=== PATIENT | female | born 1975 | race African-American/Black ===

== ENCOUNTER 2016-11-29 10:43 | Emergency (ER) | payer SELFPAY ==
[2016-11-29] MEDS ORDERED: KETOROLAC TROMETHAMINE 60 MG/2 ML SDV IM ONE (11:06)
--- NOTE | 2016-11-29 11:06 | ER Document Report ---
ED Medical Screen (RME) - General Stated Complaint: SIDE PAIN Notes: 41 yo female c/o chronic low back pain with sciatica. increased pain with radiation to right leg into knee x 1 week. no trauma. no fever. no bowel/ bladder change. no paresthesias. no urinary symptoms TRAVEL OUTSIDE OF THE [place] IN LAST 30 DAYS: No - Related Data Allergies/Adverse Reactions: No Known Allergies Allergy (Verified 04/13/16 08:32) Past Medical History Musculoskeltal Medical History: Reports Hx Musculoskeletal Deformity - Back pain in the past but not this bad - Immunizations Immunizations up to date: Yes Hx Diphtheria, Pertussis, Tetanus Vaccination: Yes
[2016-11-29] MEDS ORDERED: OXYCODONE-ACETAMINOPHEN 5-325 MG TABLET PO ONE (11:39)
--- NOTE | 2016-11-29 11:43 | ER Document Report ---
HPI - HPI Patient complains to provider of: low back pain Onset: Last week Onset/Duration: Persistent Quality of pain: Achy Pain Level: 4 Context: Patient complains of low back pain that radiates to left lower extremity to the level of her knee. Patient states she's had chronic back pain with sciatica in the past and this feels typical of flareups that she has had. Patient denies any fever, urinary retention or incontinence. He should states pain is worse when she lies supine. Patient states she typically has flareups about every other month. Associated Symptoms: Other - Low back pain. denies: Fever, Weakness Exacerbated by: Supine Relieved by: Denies Similar symptoms previously: Yes Recently seen / treated by doctor: No - ROS ROS below otherwise negative: Yes Systems Reviewed and Negative: Yes All other systems reviewed and negative - CONSTITUTIONAL Constitutional: DENIES: Fever, Chills - NEURO Neurology: DENIES: Headache, Weakness - GASTROINTESTINAL Gastrointestinal: DENIES: Nausea, Patient vomiting - URINARY Urinary: DENIES: Dysuria Notes: No retention or incontinence - REPRODUCTIVE Reproductive: DENIES: : - MUSCULOSKELETAL Musculoskeletal: REPORTS: Extremity pain, Back Pain - DERM Skin Color: Normal Skin Problems: None Past Medical History - General Information source: Patient - Social History Smoking Status: Never Smoker Chew tobacco use (# tins/day): No Frequency of alcohol use: Social Drug Abuse: None Occupation: none Lives with: Family Family History: Arthritis, CAD, DM, Hyperlipidemia, Hypertension, Malignancy, Thyroid Disfunction, Other Patient has suicidal ideation: No Patient has homicidal ideation: No Musculoskeltal Medical History: Reports Hx Musculoskeletal Deformity - Back pain in the past but not this bad Surgical Hx: Negative - Immunizations Immunizations up to date: Yes Hx Diphtheria, Pertussis, Tetanus Vaccination: Yes Vertical Provider Document - CONSTITUTIONAL Agree With Documented VS: Yes Exam Limitations: No Limitations General Appearance: WD/WN, No Apparent Distress Notes: PHYSICAL EXAMINATION: GENERAL: Well-appearing, well-nourished and in no acute distress. HEAD: Atraumatic, normocephalic. EYES: sclera clear, anicteric, conjunctiva are normal. ENT: nares patent, Moist mucous membranes. NECK: Normal range of motion, supple no lymphadenopathy LUNGS: respirations unlabored HEART: Regular rate and rhythm without murmurs EXTREMITIES: Normal range of motion, no pitting or edema. No cyanosis. Gait normal, pt ambulates without difficulty BACK: Left lower lumbar paraspinal tenderness, no deformities or step-offs. No CVA tenderness. NEUROLOGICAL: Cranial nerves grossly intact. Normal speech, normal gait. No saddle anesthesia. No foot drop PSYCH: Normal mood, normal affect. SKIN: Warm, Dry, normal turgor, no rashes or lesions noted. - INFECTION CONTROL TRAVEL OUTSIDE OF THE [place] IN LAST 30 DAYS: No Discharge - Discharge Clinical Impression: Low back pain Qualifiers: Chronicity: acute Back pain laterality: left Sciatica presence: with sciatica Sciatica laterality: sciatica of left side Qualified Code(s): M54.42 - Lumbago with sciatica, left side Condition: Stable Disposition: HOME, SELF-CARE Additional Instructions: Return immediately for any new or worsening symptoms Followup with your primary care provider, call tomorrow to make a followup appointment LOW BACK PAIN: Three out of every four people will have an episode of disabling back pain during their lifetime. Most commonly the pain is due to straining of the muscles and ligaments in the low back. Usual treatment includes: (1) Rest on a firm surface. Avoid lying on your stomach. (2) Ice pack the painful area. After a few days, gentle heat may be used intermittently to relax the area, or ice packs can be continued. (3) Medication may be needed -- muscle relaxers and antiinflammatory medicines are commonly used. (4) As the back improves, exercises are prescribed to strengthen the back and abdominal muscles. Your doctor will advise you on the proper care for your back at each stage in your recovery. You may be better in a few days -- or healing may take several weeks. If new symptoms of a "herniated disc" (radiation of pain, numbness, or tingling down the back of the leg or weakness in the leg) occur, you should be re-examined. Further testing may be necessary. ORAL NARCOTIC MEDICATION: You have been given a prescription for pain control. This medication is a narcotic. It's best taken with food, as nausea can result if taken on an empty stomach. Don't operate machinery or drive within six hours of taking this medication. Do not combine this medicine with alcohol, or with any medication which can cause sedation (such as cold tablets or sleeping pills) unless you get permission from the physician. Narcotics tend to cause constipation. If possible, drink plenty of fluids and eat a diet high in fiber and fruits. Please be aware that prescription narcotics also have the potential for abuse. People become addicted to these medications because of the general sense of wellbeing that they induce. This feeling along with a significant reduction in tension, anxiety, and aggression provides a stimulating seductive quality to these drugs. Once your pain is under control, we encourage you to discard your unused narcotics. ICE PACKS: Apply ice packs frequently against the painful area. Many different schedules are recommended, such as "20 minutes on, 20 minutes off" or "one hour ice, two hours rest." If you need to work, you may need to go longer between ice treatments. You should plan to have the area ice packed AT LEAST one fourth of the time. The ice should be applied over the wrap, tape, or splint, or over a layer of cloth -- not directly against the skin. Some ice bags have a built-in cloth and can be put directly on the skin. WARM PACKS: After approximately two days, apply gentle heat (such as a heating pad or hot water bottle) for about 20 to 30 minutes about every two hours -- at least four times daily. Warmth and elevation will help you make a more rapid recovery , and will ease the pain considerably. Do not use HOT heat, and never apply heat for longer than 30 minutes. The continuous heat can invisibly damage skin and muscles -- even when no burn is seen on the surface. Damaged muscles can make you MORE sore. FOLLOW-UP CARE: If you have been referred to a physician for follow-up care, call the physician s office for an appointment as you were instructed or within the next two days. If you experience worsening or a significant change in your symptoms, notify the physician immediately or return to the Emergency Department at any time for re-evaluation. Prescriptions: Naproxen [Naprosyn 250 Nmg Tablet] 1 tab PO BID #14 tablet Oxycodone HCl/Acetaminophen [Percocet 5-325 mg Tablet] 1 - 2 tab PO ASDIR PRN # 15 tablet PRN Reason: Referrals: DANNA MAGALLANES MD [Primary Care Provider] - Follow up in 3-5 days
[2016-11-29 11:55] VITALS: BP 116/72
== END 2016-11-29 12:00 | disposition home or self-care (01) ==
LOC: ER 10:43
DX: M54.42 Lumbago with sciatica, left side (principal)
CPT/HCPCS: 99283; 96372; J1885

== ENCOUNTER 2016-12-18 12:21 | Emergency (ER) | payer SELFPAY ==
--- NOTE | 2016-12-18 13:01 | ER Document Report ---
ED Medical Screen (RME) - General Chief Complaint: Hand Pain Stated Complaint: HAND PAIN Notes: Patient presents with ganglion cyst on the right wrist for 2 weeks. No pain, full range of motion is decreased sensation I have greeted and performed a rapid initial assessment of this patient. A comprehensive ED assessment and evaluation of the patient, analysis of test results and completion of the medical decision making process will be conducted by additional ED providers. TRAVEL OUTSIDE OF THE [place] IN LAST 30 DAYS: No - Related Data Allergies/Adverse Reactions: No Known Allergies Allergy (Verified 12/18/16 13:00) Past Medical History Musculoskeltal Medical History: Reports Hx Musculoskeletal Deformity - Back pain in the past but not this bad - Immunizations Immunizations up to date: Yes Hx Diphtheria, Pertussis, Tetanus Vaccination: Yes
[2016-12-18 13:04] VITALS: BP 131/79
[2016-12-18] MEDS ORDERED: LIDOCAINE 1%/EPINEPHRINE INJ 20 ML VIAL INJ ONE (14:50)
[2016-12-18] MEDS ORDERED: KETOROLAC TROMETHAMINE 60 MG/2 ML SDV IM ONE (14:52)
--- NOTE | 2016-12-18 14:54 | ER Document Report ---
ED General - General Chief Complaint: Hand Injury Stated Complaint: HAND PAIN Time seen by provider: 14:52 Mode of Arrival: Ambulatory Information source: Patient Notes: This is a 41-year-old female with a history of back pain who presents to the emergency room with left lower back pain radiating down the left leg. She does have a history of sciatica and states that it's been bothering in the past week. Patient denies any fever, chills. Patient denies any urinary incontinence or urine retention or numbness down the leg. Patient denies any motor weakness. Patient also complains of a cyst on the dorsal aspect of her right hand for the past month. TRAVEL OUTSIDE OF THE [place] IN LAST 30 DAYS: No - HPI Onset: Just prior to arrival Onset/Duration: Gradual Quality of pain: Dull Severity: Mild Pain Level: 1 Associated symptoms: denies: Chills, Fever, Weakness Exacerbated by: Movement Relieved by: Remaining still Similar symptoms previously: Yes Recently seen / treated by doctor: No - Related Data Allergies/Adverse Reactions: No Known Allergies Allergy (Verified 12/18/16 13:00) Past Medical History - General Information source: Patient - Social History Smoking Status: Never Smoker Cigarette use (# per day): No Chew tobacco use (# tins/day): No Frequency of alcohol use: None Drug Abuse: None Lives with: Family Family History: Arthritis, CAD, DM, Hyperlipidemia, Hypertension, Malignancy, Thyroid Disfunction, Other Patient has suicidal ideation: No Patient has homicidal ideation: No - Medical History Medical History: Negative Renal/ Medical History: Denies: Hx Peritoneal Dialysis Musculoskeltal Medical History: Reports Hx Musculoskeletal Deformity - Back pain in the past but not this bad Surgical Hx: Negative - Immunizations Immunizations up to date: Yes Hx Diphtheria, Pertussis, Tetanus Vaccination: Yes Review of Systems - Review of Systems Constitutional: denies: Chills, Fever EENT: No symptoms reported Cardiovascular: No symptoms reported Respiratory: No symptoms reported Gastrointestinal: No symptoms reported Genitourinary: No symptoms reported Female Genitourinary: No symptoms reported Musculoskeletal: See HPI Skin: See HPI Hematologic/Lymphatic: No symptoms reported Neurological/Psychological: No symptoms reported Physical Exam - Vital signs Vitals: Temp Pulse Resp BP Pulse Ox 98.2 F 90 16 131/79 H 100 12/18/16 13:01 12/18/16 13:12/18/16 13:12/18/16 13:12/18/16 13:01 Notes: Physical exam: GENERAL: 41-year-old female, alert and oriented 3, no acute distress HEAD: Atraumatic, normocephalic. EYES: Pupils equal round and reactive to light, extraocular movements intact, sclera anicteric, conjunctiva are normal. ENT: TMs normal, nares patent, oropharynx clear without exudates. Moist mucous membranes. NECK: Normal range of motion, supple without lymphadenopathy or JVD. LUNGS: Breath sounds clear to auscultation bilaterally and equal. No wheezes rales or rhonchi. HEART: Regular rate and rhythm without murmurs, rubs or gallops. ABDOMEN: Soft, nontender, normoactive bowel sounds. No guarding, no rebound. No masses appreciated. Back: No spinal tenderness. There is left paraspinal tenderness to palpation without crepitus or skin changes. EXTREMITIES: Patient does have a 2 cm x 2 cm ganglionic cyst on the dorsal aspect of the right hand. There is no overlying erythema. Otherwise, the lower extremities show Normal range of motion, no pitting or edema. No clubbing or cyanosis. NEUROLOGICAL: Cranial nerves II through XII grossly intact. Normal speech, normal gait. PSYCH: Normal mood, normal affect. SKIN: Warm, Dry, normal turgor, no rashes or lesions noted. Course - Vital Signs Vital signs: Temp Pulse Resp BP Pulse Ox 98.2 F 90 16 131/79 H 100 12/18/16 13:12/18/16 13:12/18/16 13:12/18/16 13:12/18/16 13:01 Procedures - Incision and Drainage Right Hand Time completed: 15:17 Type: Single Anesthetic type: 1% Lidocaine w/epi mL's of anesthetic: 3 Blade size: Other - 18-gauge needle Incision Method: Incision made with needle Amount/type of drainage: 3 mL of thick gelatinous cystic material removed. Notes: 12/18/16 15:18 The site was first prepped with ChloraPrep. A small amount of lidocaine with epi was injected over the site of entry using a insulin syringe (very small bore needle). An 18-gauge needle was then used to penetrate the ganglionic cyst and I was able to aspirate several cc of gelatinous material which is noninfectious in appearance. I did fenestrate the cyst before complete evacuation of the cavity. The site was cleaned with an alcohol pad and a Band- Aid was placed. Discharge - Discharge Clinical Impression: ganglionic cyst status post drainage, sciatica, Pre-hypertension Condition: Stable Disposition: HOME, SELF-CARE Instructions: Sciatica ([facility]), Ganglion Cyst ([facility]) Additional Instructions: Recommendations: As far as the back pain: See the sciatic instruction sheet. Take the Percocet for pain. Take the muscle relaxers as needed. Avoid heavy lifting. As far as the ganglionic cyst: There is a chance that he can come back. He can follow-up with the hand surgeon if it does come back: I left the number on the chart. Return to the emergency room if he develop any redness or swelling or pussy drainage or increased pain at the site of drainage of the cyst. The site may be tender for a few days: This is normal. Regarding your blood pressure: Your blood pressure was in the normal range, but the government would consider it in the "high normal range". The current recommendations is that you follow-up with a primary care doctor for repeat blood pressure check. The mild elevation in blood pressure at simply be from the pain that you experience today, but is recommended to get a recheck. Prescriptions: Methocarbamol [Robaxin 500 mg Tablet] 500 mg PO BID #20 tablet Oxycodone HCl/Acetaminophen [Percocet 5-325 mg Tablet] 1 - 2 tab PO ASDIR PRN # 25 tablet PRN Reason: Referrals: MARY ROJAS DO [ACTIVE STAFF] - Follow up as needed (This is the number for the hand surgeon.) ARGENIS BRASHER MD [ACTIVE STAFF] - Follow up in 3-5 days (This is the number of a primary care doctor to have your blood pressure rechecked.)
== END 2016-12-18 15:40 | disposition home or self-care (01) ==
LOC: ER 12:21
PROC: 0MB70ZZ Excision of Right Hand Bursa and Ligament, Open Approach (ICD-10-PCS; principal; 2016-12-18)
DX: M67.441 Ganglion, right hand (principal); M54.30 Sciatica, unspecified side; R03.0 Elevated blood-pressure reading, without diagnosis of hypertension
CPT/HCPCS: 26160; 99283; 96372; J1885; J3490

== ENCOUNTER 2017-01-04 10:40 | Emergency (ER) | payer SELFPAY ==
[2017-01-04 10:54] VITALS: BP 110/65
--- NOTE | 2017-01-04 10:57 | ER Document Report ---
ED Medical Screen (RME) - General Stated Complaint: BACK PAIN Notes: patient p/w sciatica b/l and comes here for a toradol IM. denies any injury, heavy lifting. denies UI, SI, saddle anesthesia, able to bear weight and ambulate I have greeted and performed a rapid initial assessment of this patient. A comprehensive ED assessment and evaluation of the patient, analysis of test results and completion of the medical decision making process will be conducted by additional ED providers. TRAVEL OUTSIDE OF THE [place] IN LAST 30 DAYS: No - Related Data Allergies/Adverse Reactions: No Known Allergies Allergy (Verified 01/04/17 10:55) Past Medical History Renal/ Medical History: Denies: Hx Peritoneal Dialysis Musculoskeltal Medical History: Reports Hx Musculoskeletal Deformity - Back pain in the past but not this bad - Immunizations Immunizations up to date: Yes Hx Diphtheria, Pertussis, Tetanus Vaccination: Yes Physical Exam - Vital signs Vitals: Temp Pulse Resp BP Pulse Ox 97.7 F 66 16 110/65 100 01/04/17 10:54 01/04/17 10:54 01/04/17 10:54 01/04/17 10:54 01/04/17 10:54 Course - Vital Signs Vital signs: Temp Pulse Resp BP Pulse Ox 97.7 F 66 16 110/65 100 01/04/17 10:54 01/04/17 10:54 01/04/17 10:54 01/04/17 10:54 01/04/17 10:54
--- NOTE | 2017-01-04 14:32 | ER Document Report ---
[id number] TRAVEL OUTSIDE OF THE [place] IN LAST 30 DAYS: No - HPI Patient complains to provider of: Back Pain Onset: Last week Onset/Duration: Sudden, Constant Associated symptoms: None - General Chief Complaint: Back Pain Stated Complaint: BACK PAIN Notes: Patient is a 41 y/o female presenting to the emergency department chief complaint back pain that shoots down to her knees for the past week. Patient says the right side hurts worse than the left side. Patient states she has past history of sciatica as well as bulging disk. Patient states it is difficult to walk and to turn over in bed. Patient can usually deal with the pain, but when it gets really bad, patient states she comes into the emergency department to get a Toradol shot. Patient denies ever getting steroids for her sciatica. (KATHY MCNEAL) - Related Data Allergies/Adverse Reactions: No Known Allergies Allergy (Verified 01/07/17 16:45) Past Medical History - General Information source: Patient - Social History Smoking Status: Never Smoker Chew tobacco use (# tins/day): No Frequency of alcohol use: None Drug Abuse: None Family History: Reviewed & Not Pertinent, Arthritis, CAD, DM, Hyperlipidemia, Hypertension, Malignancy, Thyroid Disfunction, Other Patient has suicidal ideation: No Patient has homicidal ideation: No Renal/ Medical History: Denies: Hx Peritoneal Dialysis Musculoskeltal Medical History: Reports Hx Musculoskeletal Deformity - Immunizations Immunizations up to date: Yes Hx Diphtheria, Pertussis, Tetanus Vaccination: Yes Review of Systems - Review of Systems Constitutional: No symptoms reported EENT: No symptoms reported Cardiovascular: No symptoms reported Respiratory: No symptoms reported Gastrointestinal: No symptoms reported Genitourinary: No symptoms reported Female Genitourinary: No symptoms reported Musculoskeletal: See HPI, Back pain Skin: No symptoms reported Hematologic/Lymphatic: No symptoms reported Neurological/Psychological: No symptoms reported -: Yes All other systems reviewed and negative Physical Exam - Vital signs Vitals: Temp Pulse Resp BP Pulse Ox 97.7 F 66 16 110/65 100 01/04/17 10:54 01/04/17 10:54 01/04/17 10:54 01/04/17 10:54 01/04/17 10:54 (KATHY MCNEAL) (MEGHAN ARIAS) - Notes Notes: GENERAL: Alert, interacts well. No acute distress. HEAD: Normocephalic, atraumatic. EYES: Pupils equal, round, and reactive to light. Extraocular movements intact. ENT: Oral mucosa moist. NECK: Full range of motion. Supple. Trachea midline. ABDOMEN: Soft, non-tender. BACK: Pain bilateral sciatic region. No midline tenderness. EXTREMITIES: Moves all 4 extremities spontaneously. No edema. Normal dorsal flexion bilaterally. NEUROLOGICAL: Alert and oriented x3. Normal speech.Patellar DTRs 2+ bilaterally. PSYCH: Normal affect, normal mood. SKIN: Warm, dry, normal turgor. No rashes or lesions noted. (KATHY MCNEAL) Course - Re-evaluation Re-evalutation: 01/04/17 14:37 I personally performed the services described in the documentation, reviewed and edited the documentation which was dictated to my scribe in my presence, and it accurately records my words and actions. Patient with history of chronic sciatica presents with a 2 day episode which feels like her sciatica. She says bilaterally starts that her sciatic region goes down posteriorly to her knee but not past it. She has no trouble walking no bowel or bladder urinary complaints or malfunction no pain in the back itself numbness tingling weakness or loss of bowel or bladder function. On examination she is neurologically intact no acute threatening neurological events gave her shot of Toradol prednisone follow primary care physician 3-4 days and discussed reasons for ED return sooner (MEGHAN ARIAS) - Vital Signs Vital signs: Temp Pulse Resp BP Pulse Ox 97.7 F 66 16 110/65 100 01/04/17 10:54 01/04/17 10:54 01/04/17 10:54 01/04/17 10:54 01/04/17 10:54 (KATHY MCNEAL) (MEGHAN ARIAS) Discharge - Discharge Clinical Impression: Sciatica Qualifiers: Laterality: bilateral Qualified Code(s): M54.31 - Sciatica, right side Condition: Stable Disposition: HOME, SELF-CARE Additional Instructions: Sciatica Your symptoms suggest "sciatica." The pain of sciatica typically radiates down the leg. Numbness in the foot or calf may also occur. Sciatica is caused by irritation of the sciatic nerve or its branches. The irritation can be due to a herniated disk in the spine, swelling and inflammation in the muscles surrounding the sciatic nerve, or direct injury of the nerve itself. Most cases of sciatica will resolve with medical treatment. Bed rest is usually recommended initially. Surgery is only necessary when the condition will not improve with rest and antiinflammatory medication. Muscle relaxers are often given if muscle soreness is present. A CAT scan of the back may be performed if a herniated disk is suspected. Re-examination is necessary if you develop increasing numbness, localized weakness in the foot or ankle, or if the pain does not respond to rest. Prescriptions: Prednisone [Deltasone 20 mg Tablet] 3 tab PO DAILY 5 Days Referrals: [facility] [Provider Group] - Follow up in 3-5 days (Call for an appointment to be seen in 3-4 days return for increasing worsening or new symptoms) Scribe Documentation - Scribe Written by Anne Marie:: Kathy Mcneal 01/04/2017 1431 acting as scribe for :: Pietro
[2017-01-04] MEDS ORDERED: KETOROLAC TROMETHAMINE 60 MG/2 ML SDV IM ONE (14:39)
== END 2017-01-04 15:20 | disposition home or self-care (01) ==
LOC: ER 10:40
DX: M54.31 Sciatica, right side (principal); M54.32 Sciatica, left side; M54.9 Dorsalgia, unspecified; Z82.61 Family history of arthritis
CPT/HCPCS: 99283; 96372; J1885

== ENCOUNTER 2017-01-07 16:21 | Emergency (ER) | payer SELFPAY ==
--- NOTE | 2017-01-07 16:46 | ER Document Report ---
ED Medical Screen (RME) - General Stated Complaint: RIGHT LEG PAIN Mode of Arrival: Ambulatory Information source: Patient Notes: Patient presents complaining of right lower extremity pain. Patient states she knows a bruise to her aspect of her thigh. Patient denies any recent injury. She reports leg pain for the past 3 days. hx: Low back pain, sciatica I have greeted and performed a rapid initial assessment of this patient. A comprehensive ED assessment and evaluation of the patient, analysis of test results and completion of the medical decision making process will be conducted by additional ED providers. TRAVEL OUTSIDE OF THE [place] IN LAST 30 DAYS: No - Related Data Allergies/Adverse Reactions: No Known Allergies Allergy (Verified 01/04/17 10:55) Past Medical History Renal/ Medical History: Denies: Hx Peritoneal Dialysis Musculoskeltal Medical History: Reports Hx Musculoskeletal Deformity - Immunizations Immunizations up to date: Yes Hx Diphtheria, Pertussis, Tetanus Vaccination: Yes Physical Exam - Vital signs Vitals: Temp Pulse Resp BP Pulse Ox 98.2 F 67 16 127/62 H 98 01/07/17 16:26 01/07/17 16:26 01/07/17 16:26 01/07/17 16:26 01/07/17 16:26 - Extremities General lower extremity: Tender - Right lower extremity Course - Vital Signs Vital signs: Temp Pulse Resp BP Pulse Ox 98.2 F 67 16 127/62 H 98 01/07/17 16:26 01/07/17 16:26 01/07/17 16:26 01/07/17 16:26 01/07/17 16:26
[2017-01-07] MEDS ORDERED: KETOROLAC TROMETHAMINE 60 MG/2 ML SDV IM ONE (22:30)
--- NOTE | 2017-01-07 22:41 | ER Document Report ---
HPI - HPI Pain Level: 5 Context: Patient is a 41-year-old female who was recently seen in our emergency department last for right sciatica. Patient states that she was seen on in the next day on Sunday she admits to right thigh pain and bruising. Patient denies any recent trauma to the leg but it is worse with movement and improves with rest. She has not been taking anything over-the- counter for her pain. Also complaining of right sciatica. Patient states that she has a history of this denies any urinary/stool incontinence, saddle anesthesia. Patient is able to ambulate without any difficulty while I'm in the room - CARDIOVASCULAR Cardiovascular: DENIES: Chest pain - REPRODUCTIVE Reproductive: DENIES: : - DERM Skin Color: Normal Past Medical History - General Information source: Patient - Social History Smoking Status: Unknown if Ever Smoked Chew tobacco use (# tins/day): No Frequency of alcohol use: Social Drug Abuse: None Family History: Reviewed & Not Pertinent, Arthritis, CAD, DM, Hyperlipidemia, Hypertension, Malignancy, Thyroid Disfunction, Other Patient has suicidal ideation: No Patient has homicidal ideation: No Renal/ Medical History: Denies: Hx Peritoneal Dialysis Musculoskeltal Medical History: Reports Hx Musculoskeletal Deformity - Immunizations Immunizations up to date: Yes Hx Diphtheria, Pertussis, Tetanus Vaccination: Yes Vertical Provider Document - CONSTITUTIONAL Agree With Documented VS: Yes Exam Limitations: No Limitations General Appearance: WD/WN, No Apparent Distress - INFECTION CONTROL TRAVEL OUTSIDE OF THE [place] IN LAST 30 DAYS: No - RESPIRATORY O2 Sat by Pulse Oximetry: 98 - CARDIOVASCULAR Pulses: Normal: Femoral, Dorsalis pedis - BACK Back: Normal Inspection. negative: CVA Tenderness-Right, CVA Tenderness-Left Notes: No paraspinous muscle tenderness. - MUSCULOSKELETAL/EXTREMETIES Musculoskeletal/Extremeties: MAEW, FROM, Non-Tender, No Edema, Eccymosis - Mild ecchymosis may be 1 x 2 cm over the right lateral thigh. No evidence of deformity - NEURO Level of Consciousness: Awake, Alert, Appropriate Motor/Sensory: No Motor Deficit, No Sensory Deficit - DERM Integumentary: Warm, Dry, No Rash Course - Re-evaluation Re-evalutation: 01/07/17 23:04 Patient is a 41-year-old female presents emergency Department with a contusion of the right thigh. She states she's never sure what she had a cough of wanted to His evaluated. No evidence of skin damage or inflammation, no evidence of femur deformity. Patient is disabled and bear weight without any difficulty. The charge patient home and can follow-up with her PCP - Vital Signs Vital signs: Temp Pulse Resp BP Pulse Ox 98.2 F 67 16 127/62 H 98 01/07/17 16:26 01/07/17 16:26 01/07/17 16:26 01/07/17 16:26 01/07/17 16:26 Discharge - Discharge Clinical Impression: Thigh contusion Qualifiers: Encounter type: initial encounter Laterality: right Qualified Code(s): S70.11XA - Contusion of right thigh, initial encounter Condition: Good Disposition: HOME, SELF-CARE Instructions: Warm Packs ([facility]), Contusion ([facility]) Prescriptions: Meloxicam [Mobic 7.5 Mg Tablet] 7.5 mg PO BID #14 tablet Referrals: DANNA MAGALLANES MD [Primary Care Provider] - Follow up as needed
[2017-01-07 22:58] VITALS: BP 116/56
== END 2017-01-07 23:03 | disposition home or self-care (01) ==
LOC: ER 16:21
DX: S70.11XA Contusion of right thigh, initial encounter (principal); X58.XXXA Exposure to other specified factors, initial encounter; M54.31 Sciatica, right side
CPT/HCPCS: 99283; 96372; J1885

== ENCOUNTER 2017-01-10 07:29 | Emergency (ER) | payer SELFPAY ==
[2017-01-10 07:40] VITALS: BP 140/90
--- NOTE | 2017-01-10 08:26 | ER Document Report ---
HPI - HPI Patient complains to provider of: sciatica, leg pain Pain Level: 5 Context: He is a 41 female presents emergency Department complaining of right sciatica- like pain onset 2 and half weeks ago. Denies any trauma or accident. Patient has recently complained was recently diagnosed with sciatica and dailey splints of the right lower extremity. She states the medication she was previously sent home on is not doing anything and that ice/heat is not really helping with the pain she is up and stretches and she has not followed followed up with her primary care provider. She states that she's completing the prednisone that was given to her about one week ago with resolution of left-sided sciatica but now complaining of right lateral thigh pain and right anterior lower leg pain. Patient is able to ambulate without any difficulty. Denies any urinary/ incontinence, saddle anesthesia. PCP is Dr. pauline Magallanes - REPRODUCTIVE Reproductive: DENIES: : - DERM Skin Color: Normal Past Medical History - Social History Smoking Status: Never Smoker Chew tobacco use (# tins/day): No Frequency of alcohol use: Social Family History: Reviewed & Not Pertinent, Arthritis, CAD, DM, Hyperlipidemia, Hypertension, Malignancy, Thyroid Disfunction, Other Renal/ Medical History: Denies: Hx Peritoneal Dialysis Musculoskeltal Medical History: Reports Hx Musculoskeletal Deformity - Immunizations Immunizations up to date: Yes Hx Diphtheria, Pertussis, Tetanus Vaccination: Yes Vertical Provider Document - CONSTITUTIONAL Agree With Documented VS: Yes Exam Limitations: No Limitations, Physical Impairment General Appearance: WD/WN, No Apparent Distress - INFECTION CONTROL TRAVEL OUTSIDE OF THE [place] IN LAST 30 DAYS: No - NECK Neck: Normal Inspection, Other - Full range of motion and no pain to palpation - RESPIRATORY Respiratory: Breath Sounds Normal, No Respiratory Distress, Chest Non-Tender. negative: Rales, Rhonchi, Wheezing O2 Sat by Pulse Oximetry: 99 - CARDIOVASCULAR Cardiovascular: Regular Rate, Regular Rhythm, No Murmur Pulses: Normal: Radial, Dorsalis pedis - MUSCULOSKELETAL/EXTREMETIES Musculoskeletal/Extremeties: MAEW, FROM, Tender, No Edema. negative: Eccymosis - NEURO Level of Consciousness: Awake, Alert, Appropriate Motor/Sensory: No Motor Deficit, No Sensory Deficit - DERM Integumentary: Warm, Dry, No Rash Course - Re-evaluation Re-evalutation: 01/10/17 08:38 Patient is a 41-year-old female presents emergency department complaining of a chronic complaint of right sciatica and dailey splints. Discussed with patient the importance of doing ice, heat, stretching, anti-inflammatory medications. Discussed with her she needs a follow-up with her PCP regarding this issue in the future. - Vital Signs Vital signs: Temp Pulse Resp BP Pulse Ox 98.1 F 60 16 140/90 H 99 01/10/17 07:33 01/10/17 07:33 01/10/17 07:33 01/10/17 07:33 01/10/17 07:33 Discharge - Discharge Clinical Impression: IT band syndrome Qualifiers: Laterality: right Qualified Code(s): M76.31 - Iliotibial band syndrome, right leg Dailey splints Qualifiers: Encounter type: subsequent encounter Laterality: right Qualified Code(s): S86.891D - Other injury of other muscle(s) and tendon(s) at lower leg level, right leg, subsequent encounter Condition: Good Disposition: HOME, SELF-CARE Instructions: Stretching Exercises for the Back ([facility]), Sciatica ([facility]) Additional Instructions: Dailey Splints What are dailey splints? Dailey splints refers to pain and tenderness along or just behind the large bone in the lower leg (the tibia). What causes dailey splints? Dailey splints most often happen after hard exercise, sports, or repetitive activity. This repetitive action can lead to inflammation of the muscles, tendons, and thin layer of tissue covering the dailey bones, causing pain. What are the symptoms of dailey splints? These are the most common symptoms of dailey splints: * Pain felt on the front and outside of the dailey. It's first felt when the heel touches the ground during running. In time, pain becomes constant and the dailey is painful to the touch. * Pain that starts on the inside of the lower leg above the ankle. Pain gets worse when standing on the toes or rolling the ankle inward. As the dailey splint progresses, pain will increase. The best course of treatment for dailey splints is to stop any activity that's causing the pain, until the injury is healed. Other treatment may include: * Stretching exercises * Strengthening exercises * Cold packs * Medicine, such as ibuprofen * Running shoes with a stiff heel and special arch support Can dailey splints be prevented? You may be able to prevent dailey splints by wearing good fitting athletic shoes. Also, gradually increase the intensity, duration, and frequency of a new exercise routine. It may also help to switch between high impact activities and low impact activities such as swimming or cycling. Sales points about dailey splints * Dailey splints refers to the pain and tenderness along or just behind the large bone in the lower leg. * They develop after hard exercise, sports, or repetitive activity. * Dailey splints cause pain on the front or outside of the shins or on the inside of the lower leg above the ankle. * Treatment includes stopping the activity that causes the pain. Stretching and strengthening exercises may also help. You can also apply cold packs, take medicines, such as ibuprofen, and wear good fitting athletic shoes. Iliotibial Band Syndrome What is iliotibial band syndrome? Iliotibial band syndrome (often called IT band syndrome) is a medical condition that causes pain on the outside of the knee. It most commonly happens in athletes, especially distance runners, or those new to exercise. The bones of your knee joint are your thighbone (femur), your shinbone (tibia), and your kneecap (patella). Your iliotibial band is a strong, thick band of tissue that runs down the outside of your thigh. It extends all the way from your hip bones to the top of your shinbone. When you bend and extend your leg, this band moves over the outer lower edge of your thighbone. With repeated bending and extending of the knee, this movement of the iliotibial band may irritate surrounding tissues, causing pain. Although anyone can develop it, iliotibial band syndrome is relatively common in distance runners. What causes iliotibial band syndrome? Researchers are still debating the exact cause of iliotibial band syndrome. The pain may result directly from friction as the iliotibial band moves over the lower outer edge of the thighbone. This may cause inflammation in the bone, tendons, and small, fluid-filled sacs in the area. The iliotibial band may also abnormally compress the tissue beneath it, causing pain. Whatever the specific cause, it is clear that repetitive bending and extending of the knee is in some way responsible for iliotibial band syndrome. Exercise Instructions: -Side Leg Raise: Lie on your right side and lift your left leg to 45 degrees in a controlled manner, then lower it back down to the starting position. Make sure your pelvis remains in a neutral position. A more advanced version includes a loop of rubber tubing around your ankles for added resistance. Perform 20-30 reps. -Clamshell: Lie on your right side with your knees and ankles together, with knees bent at about 90 degrees. Open your legs by activating your upper glute muscle. Make sure you maintain a neutral spine and dont rock your pelvis. Keep the motion slow and controlled. A more advanced version includes putting a loop of rubber tubing around your thighs just above your knee. Perform 20-30 reps. -Hip Thrust: Lie on your back with your weight on your upper back between the shoulder blades and your feet. Keep your arms at your sides or cross them over your chest. Lower your butt almost to the ground and thrust upward by activating your glutes and driving your heels into the ground. A more advanced version is the Single Leg Hip Thrust. Lift one leg so your weight is all on one leg and your back. Repeat the same movement, making sure you drive your heel into the ground and keep a stable pelvis. Perform 20-30 reps. -Side Hip Bridge: Lie on your side with your feet propped on an elevated surface about 1-2 feet off the ground. Push your bottom foot down and lift your torso using your hip muscles while keeping a stable spine. Return to the starting position. Perform 10-30 reps. -Side Shuffle: With your knees slightly bent in a squat-like position, take ten steps to one side. While still facing the same direction, take another 10 steps back to your starting position. This is one set. A more advanced version includes a Thera-band or loop of rubber tubing around your ankles. It should be tight enough so it provides constant resistance during the entire movement. Perform 3-5 sets. -Pistol Squat: Standing on one leg, squat down so your thigh is almost parallel to the ground. Keep your spine in a neutral position and keep the motion slow and controlled, ensuring your knee does not collapse inward. Perform 5-15 reps. -Hip Hike: Stand on your right foot. With your pelvis in a neutral position, drop the left side so it is several inches below the right side of your pelvic bone. Activate your right hip muscle and lift your left side back to its neutral position. Perform 10-30 reps. Prescriptions: Tramadol HCl 50 mg PO Q6HP PRN #15 tablet PRN Reason: Ibuprofen [Motrin 800 mg Tablet] 800 mg PO Q8HP PRN #30 tab PRN Reason: Forms: Return to Work Referrals: DANNA MAGALLANES MD [ACTIVE STAFF] - Follow up in 1 week (For management of your sciatica and leg pain)
[2017-01-10] MEDS ORDERED: TRAMADOL HCL 50 MG TABLET PO ONE (08:35)
== END 2017-01-10 08:30 | disposition home or self-care (01) ==
LOC: ER 07:29
DX: M76.31 Iliotibial band syndrome, right leg (principal); S86.891D Other injury of other muscle(s) and tendon(s) at lower leg level, right leg, subsequent encounter; X58.XXXD Exposure to other specified factors, subsequent encounter; M54.30 Sciatica, unspecified side
CPT/HCPCS: 99283

== ENCOUNTER 2019-04-03 11:09 | Emergency (ER) | payer SELFPAY ==
[2019-04-03 11:14] VITALS: BP 133/53
--- NOTE | 2019-04-03 12:00 | ER Document Report ---
ED Neck/Back Problem - General Chief Complaint: Low Back Pain Stated Complaint: BACK/HIP PAIN Time Seen by Provider: 04/03/19 11:45 Primary Care Provider: SAM UMANZOR MD [ACTIVE STAFF] - Follow up in 3-5 days Mode of Arrival: Ambulatory Notes: 44-year-old female presents to ED for complaint of exacerbation of chronic back pain. She has been moving for the last 2 days and now has pain in the lower back radiating down the left leg. Denies any loss of control of bowel bladder, saddle anesthesia, loss of control or sensation to the lower extremities. Patient has no signs or symptoms of cauda equina. Patient is alert oriented respirations regular and unlabored speaking in full sentences and walks with a even steady gait. TRAVEL OUTSIDE OF THE [place] IN LAST 30 DAYS: No - HPI Patient complains to provider of: Pain, Lower back Onset: Other - Chronic exasperation for the last 2 days Where: Home Onset: Chronic Timing: Still present, Worse Quality of pain: Sharp, Throbbing Recent injury: Possibly Associated symptoms: Like prior neck/back pain, Radiation to leg, Lower back pain. denies: Constipation, Fever, Incontinence, Motor loss, Numbness/tingling, Radiation to arm, Radiation to chest, Sensory loss, Sweaty, Unable to urinate, Upper back pain Exacerbated by: Movement of trunk, Sitting position Relieved by: Nothing Similar symptoms previously: Yes Recently seen / treated by doctor: No - Related Data Allergies/Adverse Reactions: No Known Allergies Allergy (Verified 04/03/19 11:09) Past Medical History - General Information source: Patient - Social History Smoking Status: Never Smoker Frequency of alcohol use: Social Drug Abuse: None Occupation: [employer] Lives with: Parents Family History: Reviewed & Not Pertinent, Arthritis, CAD, DM, Hyperlipidemia, Hypertension, Malignancy, Thyroid Disfunction, Other Patient has suicidal ideation: No Patient has homicidal ideation: No - Past Medical History Cardiac Medical History: Reports: None Pulmonary Medical History: Reports: None EENT Medical History: Reports: None Neurological Medical History: Reports: None Endocrine Medical History: Reports: None Renal/ Medical History: Reports: None Malignancy Medical History: Reports: None GI Medical History: Reports: None Musculoskeletal Medical History: Reports Hx Arthritis - Chronic back pain sciatica, Reports Hx Musculoskeletal Deformity Skin Medical History: Reports None Psychiatric Medical History: Reports: None Traumatic Medical History: Reports: None Infectious Medical History: Reports: None Surgical Hx: Negative Past Surgical History: Reports: None - Immunizations Immunizations up to date: Yes Hx Diphtheria, Pertussis, Tetanus Vaccination: Yes Review of Systems - Review of Systems Constitutional: No symptoms reported EENT: No symptoms reported Cardiovascular: No symptoms reported Respiratory: No symptoms reported Gastrointestinal: No symptoms reported Genitourinary: No symptoms reported Female Genitourinary: No symptoms reported Musculoskeletal: Back pain, Muscle pain, Muscle stiffness Skin: No symptoms reported Hematologic/Lymphatic: No symptoms reported Neurological/Psychological: No symptoms reported -: Yes All other systems reviewed and negative Physical Exam - Vital signs Vitals: Temp Pulse Resp BP Pulse Ox 97.8 F 72 16 133/53 H 100 04/03/19 11:13 04/03/19 11:13 04/03/19 11:13 04/03/19 11:13 04/03/19 11:13 Interpretation: Normal - General General appearance: Appears well, Alert - HEENT Head: Normocephalic, Atraumatic Eyes: Normal Pupils: PERRL - Respiratory Respiratory status: No respiratory distress Chest status: Nontender Breath sounds: Normal Chest palpation: Normal - Cardiovascular Rhythm: Regular Heart sounds: Normal auscultation Murmur: No - Abdominal Inspection: Normal Distension: No distension Bowel sounds: Normal Tenderness: Nontender Organomegaly: No organomegaly - Back Back: Normal, Tender, Vertebra tenderness Notes: Signs or symptoms of cauda equina, no saddle anesthesia no loss of control of bowel bladder, no loss of sensation or use of lower extremities. Patient able to ambulate with a even steady gait. - Extremities General upper extremity: Normal inspection, Nontender, Normal color, Normal ROM, Normal temperature General lower extremity: Normal inspection, Nontender, Normal color, Normal ROM, Normal temperature, Normal weight bearing. No: Teto's sign - Neurological Neuro grossly intact: Yes Cognition: Normal Orientation: AAOx4 Noemi Coma Scale Eye Opening: Spontaneous Noemi Coma Scale Verbal: Oriented Noemi Coma Scale Motor: Obeys Commands Crowder Coma Scale Total: 15 Speech: Normal Motor strength normal: LUE, RUE, LLE, RLE Sensory: Normal - Psychological Associated symptoms: Normal affect, Normal mood - Skin Skin Temperature: Warm Skin Moisture: Dry Skin Color: Normal Course - Re-evaluation Re-evalutation: 04/03/19 12:47 After performing a Medical Screening Examination, I estimate there is LOW risk for EXPANDING OR RUPTURED ABDOMINAL AORTIC ANEURYSM, CAUDA EQUINA SYNDROME, EPIDURAL MASS LESION, or HERNIATED DISK CAUSING SEVERE SPINAL STENOSIS, thus I consider the discharge disposition reasonable. I have reevaluated this patient multiple times and no significant life threatening changes are noted. The patient and I have discussed the diagnosis and risks, and we agree with discharging home and close follow-up. We also discussed returning to the Emergency Department immediately if new or worsening symptoms occur with the understanding that symptoms and presentations can change. We have discussed the symptoms which are most concerning (e.g., saddle anesthesia, urinary or bowel incontinence or retention, changing or worsening pain) that necessitate immediate return. - Vital Signs Vital signs: Temp Pulse Resp BP Pulse Ox 97.8 F 72 16 133/53 H 100 04/03/19 11:13 04/03/19 11:13 04/03/19 11:13 04/03/19 11:13 04/03/19 11:13 Discharge - Discharge Clinical Impression: Low back pain Qualifiers: Chronicity: chronic Back pain laterality: bilateral Sciatica presence: with sciatica Sciatica laterality: sciatica of left side Qualified Code(s): M54.42 - Lumbago with sciatica, left side Condition: Stable Disposition: HOME, SELF-CARE Additional Instructions: Chronic Back Pain Chronic back pain (pain persisting longer than three months) is a common problem. A medical evaluation can look for herniated disc, arthritis, osteoporosis, tumors, and infections. But at least half the time, there's no obvious treatable cause. Anxiety and depression tend to worsen back pain. Ibuprofen or other anti-inflammatory medicine can help. A heating pad, used for 15-20 minutes at a time, can ease pain. For this type of back pain, narcotic medicines should be avoided. Muscle relaxers are rarely helpful unless you're having spasms. Activity is important. Find an aerobic exercise program that your back can tolerate. Too much rest makes back pain worse. Specific back exercises are usually prescribed to strengthen the back and abdominal muscles. Often, a physical therapist can help. Avoid heavy lifting, working while bent over, or standing with both knees straight. Most back pain patients do better with a firm mattress. If new symptoms of a "herniated disc" (radiation of pain, numbness, or tingling down the back of the leg or weakness in the leg) occur, you should be re-examined. MUSCLE RELAXERS: Muscle relaxing medications are usually prescribed for acute muscle spasm or injury to the neck and back. They are often combined with antiinflammatory pain medication for increased relief. You may stop the muscle relaxer when the pain and stiffness have improved. Start the medication again if spasms recur. Muscle relaxers may cause drowsiness, especially with the first dose. Do not operate machinery or drive while under the effects of the medication. Most muscle relaxers last up to 24 hours. Do not combine the medication with alcohol. ICE PACKS: Apply ice packs frequently against the painful area. Many different schedules are recommended, such as "20 minutes on, 20 minutes off" or "one hour ice, two hours rest." If you need to work, you may need to go longer between ice treatments. You should plan to have the area ice packed AT LEAST one fourth of the time. The ice should be applied over the wrap, tape, or splint, or over a layer of cloth -- not directly against the skin. Some ice bags have a built-in cloth and can be put directly on the skin. WARM PACKS: After approximately two days, apply gentle heat (such as a heating pad or hot water bottle) for about 20 to 30 minutes about every two hours -- at least four times daily. Warmth and elevation will help you make a more rapid recovery, and will ease the pain considerably. Do not use HOT heat, and never apply heat for longer than 30 minutes. The continuous heat can invisibly damage skin and muscles -- even when no burn is seen on the surface. Damaged muscles can make you MORE sore. STEROID MEDICATION: You have been given an injection of medicine of the cortisone/steroid class. This medication is used to control inflammation or allergy. It is often continued as a pill for a short period of time, until the acute process subsides. There are usually no side effects from short-term use of cortisone-like medications. Some persons feel an increased sense of well-being and are not sleepy at bedtime. Long-term use of cortisone medications is best avoided, unless required for a severe condition. If your condition does not remit, or relapses after the course of corticosteroid medication, you should consult your physician. Toradol Injection You have been given an injection of ketorolac tromethamine (Toradol). This is an excellent, safe drug for pain control. It also has potent antiinflammatory action. You should have significant pain relief within about one hour. Toradol is not addicting and is non-sedating. It does not interfere with driving or work. Call or return if you develop itching, hives, shortness of breath, or rash. Stretching Exercises for the Back The physician has recommended that you begin stretching exercises for your back. These are often used even while the back is painful. However, you should notify the physician if the activities seem to increase your pain. PELVIC TILT: Lie flat on your back with knees bent. Tighten your stomach and buttock muscles so it flattens your lower back against the floor. Hold 10 seconds. Repeat 10 times, twice daily. KNEE RAISE: Lying on the back with knees bent, raise one knee to your chest, then the other. Hold both knees against the chest 10 seconds, then lower one knee at a time. Repeat 10 times, twice daily. PARTIAL TRUNK RAISE: Lie face down, arms at your sides. Keeping your waist on the floor, use your arms raise your chest up. Support yourself on your elbows for 30 seconds. Repeat twice daily, increasing the time to two minutes as you recover. FOLLOW-UP CARE: If you have been referred to a physician for follow-up care, call the physicians office for an appointment as you were instructed or within the next two days. If you experience worsening or a significant change in your symptoms, notify the physician immediately or return to the Emergency Department at any time for re-evaluation. Prescriptions: Cyclobenzaprine HCl [Flexeril 10 mg Tablet] 10 mg PO TIDP PRN #15 tab PRN Reason: Forms: Elevated Blood Pressure, Return to Work Referrals: SAM UMANZOR MD [ACTIVE STAFF] - Follow up in 3-5 days
[2019-04-03] MEDS ORDERED: LIDOCAINE 5% (700 MG) TRANSDERMAL ADH..PATCH TP ONE (12:02)
[2019-04-03] MEDS ORDERED: DEXAMETHASONE SOD PHOS INJ 10 MG/1 ML VIAL IM ONE (12:02)
[2019-04-03] MEDS ORDERED: KETOROLAC TROMETHAMINE 60 MG/2 ML SDV IM ONE (12:02)
== END 2019-04-03 12:16 | disposition home or self-care (01) ==
LOC: ER 11:09
DX: G89.29 Other chronic pain (principal); M54.42 Lumbago with sciatica, left side
CPT/HCPCS: 99283; 96372; J1885; J1100

== ENCOUNTER 2019-12-23 05:07 | Emergency (ER) | payer SELFPAY ==
--- NOTE | 2019-12-23 06:45 | RADIOLOGY REPORT (SQ) ---
EXAM DESCRIPTION: XR HUMERUS COMPLETED DATE/TME: 12/23/2019 05:28 CLINICAL HISTORY: 44 years, Female, bone tenderness COMPARISON: None. FINDINGS: 2 views of the left humerus. No acute fracture or dislocation. Normal osseous mineralization. Downward projecting osteophyte of the acromion. This could contribute to clinical impingement syndrome. IMPRESSION: 1. No acute fracture or dislocation. copyright 2010 [employer]- All Rights Reserved
--- NOTE | 2019-12-23 08:24 | ER Document Report ---
ED Extremity Problem, Upper - General Chief Complaint: Arm Pain Stated Complaint: LEFT ARM INJURY Time Seen by Provider: 12/23/19 08:12 Notes: Patient is a 44-year-old -[place] female with no significant past medical history presents to the emergency department with a chief complaint of left shoulder and trapezius pain after an injury that occurred last night at midnight. She states she was helping a friend move some stuff when a large metal door frame fell landing on the left shoulder. She states she initially had some numbness and tingling in the distal fingers but that has since subsided. She admits to soreness in the left shoulder and left trapezius. She denies any head injury or loss of consciousness. No ongoing numbness, tingling or weakness. TRAVEL OUTSIDE OF THE [place] IN LAST 30 DAYS: No - Related Data Allergies/Adverse Reactions: No Known Allergies Allergy (Verified 12/23/19 05:23) Past Medical History - Social History Smoking Status: Never Smoker Family History: Reviewed & Not Pertinent, Arthritis, CAD, DM, Hyperlipidemia, Hypertension, Malignancy, Thyroid Disfunction, Other Patient has suicidal ideation: No Patient has homicidal ideation: No Renal/ Medical History: Denies: Hx Peritoneal Dialysis Musculoskeletal Medical History: Reports Hx Arthritis - Chronic back pain sciatica, Reports Hx Musculoskeletal Deformity - Immunizations Immunizations up to date: Yes Hx Diphtheria, Pertussis, Tetanus Vaccination: Yes Review of Systems - Review of Systems Musculoskeletal: Joint pain, Muscle pain, Muscle stiffness -: Yes All other systems reviewed and negative Physical Exam - Vital signs Vitals: Temp Pulse Resp BP Pulse Ox 98.3 F 83 16 127/46 H 100 12/23/19 05:22 12/23/19 05:22 12/23/19 05:22 12/23/19 05:22 12/23/19 05:22 - General General appearance: Appears well, Alert - HEENT Head: Normocephalic, Atraumatic Eyes: Normal Pupils: PERRL - Respiratory Respiratory status: No respiratory distress Chest status: Nontender Breath sounds: Normal Chest palpation: Normal - Cardiovascular Rhythm: Regular Heart sounds: Normal auscultation - Extremities Arm: Other - Full passive range of motion of the left arm, left shoulder and left elbow. No deformities. Some mild tenderness to the top of the left acromion and left trapezius posteriorly. Neurovascular intact distally 2+ radial on the left. Upper extremity strength 5 out of 5 bilaterally. - Neurological Neuro grossly intact: Yes Cognition: Normal Orientation: AAOx4 Noemi Coma Scale Eye Opening: Spontaneous Noemi Coma Scale Verbal: Oriented Noemi Coma Scale Motor: Obeys Commands Noemi Coma Scale Total: 15 Speech: Normal Motor strength normal: LUE, RUE, LLE, RLE Sensory: Normal - Psychological Associated symptoms: Normal affect, Normal mood - Skin Skin Temperature: Warm Skin Moisture: Dry Skin Color: Normal Course - Re-evaluation Re-evalutation: 12/23/19 08:21 X-rays negative for acute process per radiologist. Patient placed in a sling for comfort. Will be given a course of Norflex. We discussed supportive care measures. Counseled her at length regarding the importance of outpatient follow-up and advised that she return here or any ER immediately with any new, persistent or worsening symptoms. She verbalized understood and agreed. 12/23/19 08:22 - Vital Signs Vital signs: Temp Pulse Resp BP Pulse Ox 98.3 F 83 16 127/46 H 100 12/23/19 05:22 12/23/19 05:22 12/23/19 05:22 12/23/19 05:22 12/23/19 05:22 Discharge - Discharge Clinical Impression: Myalgia Shoulder contusion Qualifiers: Encounter type: initial encounter Laterality: unspecified laterality Qualified Code(s): S40.019A - Contusion of unspecified shoulder, initial encounter Condition: Stable Disposition: HOME, SELF-CARE Instructions: Contusion ([facility]) Additional Instructions: Follow-up with your regular doctor in 2 to 3 days for reevaluation. Return here or any ER immediately with any new, persistent or worsening symptoms. Prescriptions: Cyclobenzaprine HCl [Flexeril 10 mg Tablet] 10 mg PO TIDP PRN #15 tab PRN Reason:
[2019-12-23 09:00] VITALS: BP 123/70
== END 2019-12-23 09:00 | disposition home or self-care (01) ==
LOC: ER 05:07
DX: S40.019A Contusion of unspecified shoulder, initial encounter (principal); M25.512 Pain in left shoulder; M79.18 Myalgia, other site; W20.8XXA Other cause of strike by thrown, projected or falling object, initial encounter; Y93.89 Activity, other specified
CPT/HCPCS: 99283